=== PATIENT | female | born 1960 | race Native Hawaiian/Other Pacific Islander ===

== ENCOUNTER 2021-01-24 11:06 | Outpatient (CLI) | payer OTHER ==
[~2021-01-24] VITALS: Ht 154.9 cm; Wt 89.4 kg
== END 2021-01-24 21:51 | disposition home or self-care (01) ==
LOC: DIABINF 11:06
PROVIDERS: ATTEND Internal Medicine Endocrinology, Diabetes & Metabolism
DX: E11.65 Type 2 diabetes mellitus with hyperglycemia (principal); E11.40 Type 2 diabetes mellitus with diabetic neuropathy, unspecified; I25.119 Atherosclerotic heart disease of native coronary artery with unspecified angina pectoris; I10 Essential (primary) hypertension; E78.2 Mixed hyperlipidemia; G25.81 Restless legs syndrome; E66.9 Obesity, unspecified; Z68.39 Body mass index [BMI] 39.0-39.9, adult; E55.9 Vitamin D deficiency, unspecified
CPT/HCPCS: 82948; 96365; 96366; 96521; 99204; J1718; J1815

== ENCOUNTER 2021-01-25 12:23 | Outpatient (CLI) | payer OTHER ==
[~2021-01-25] VITALS: Ht 154.9 cm; Wt 89.4 kg
== END 2021-01-25 22:03 | disposition home or self-care (01) ==
LOC: DIABINF 12:23
PROVIDERS: ATTEND Internal Medicine Endocrinology, Diabetes & Metabolism
DX: E11.65 Type 2 diabetes mellitus with hyperglycemia (principal); E11.40 Type 2 diabetes mellitus with diabetic neuropathy, unspecified; I25.119 Atherosclerotic heart disease of native coronary artery with unspecified angina pectoris; I10 Essential (primary) hypertension; E78.2 Mixed hyperlipidemia; G25.81 Restless legs syndrome; E66.8 Other obesity; Z68.39 Body mass index [BMI] 39.0-39.9, adult; E55.9 Vitamin D deficiency, unspecified
CPT/HCPCS: 82948; 96365; 96366; 96521; 99214; J1718; J1815

== ENCOUNTER 2021-01-31 12:23 | Outpatient (CLI) | payer OTHER ==
[~2021-01-31] VITALS: Ht 180.3 cm; Wt 89.4 kg
== END 2021-01-31 21:18 | disposition home or self-care (01) ==
LOC: DIABINF 12:23
PROVIDERS: ATTEND Internal Medicine Endocrinology, Diabetes & Metabolism
DX: E11.65 Type 2 diabetes mellitus with hyperglycemia (principal); E11.40 Type 2 diabetes mellitus with diabetic neuropathy, unspecified; N18.31 Chronic kidney disease, stage 3a; I25.118 Atherosclerotic heart disease of native coronary artery with other forms of angina pectoris; I10 Essential (primary) hypertension; E78.2 Mixed hyperlipidemia; G25.81 Restless legs syndrome; E66.8 Other obesity; Z68.39 Body mass index [BMI] 39.0-39.9, adult; E55.9 Vitamin D deficiency, unspecified
CPT/HCPCS: 82948; 96365; 96366; 96521; 99214; J1718; J1815

== ENCOUNTER 2021-02-01 13:03 | Outpatient (CLI) | payer OTHER ==
[~2021-02-01] VITALS: Ht 180.3 cm; Wt 89.4 kg
== END 2021-02-01 22:44 | disposition home or self-care (01) ==
LOC: DIABINF 13:03
PROVIDERS: ATTEND Internal Medicine Endocrinology, Diabetes & Metabolism
DX: E11.65 Type 2 diabetes mellitus with hyperglycemia (principal); E11.40 Type 2 diabetes mellitus with diabetic neuropathy, unspecified; I25.118 Atherosclerotic heart disease of native coronary artery with other forms of angina pectoris; I10 Essential (primary) hypertension; E78.2 Mixed hyperlipidemia; G25.81 Restless legs syndrome; E66.8 Other obesity; Z68.39 Body mass index [BMI] 39.0-39.9, adult; E55.9 Vitamin D deficiency, unspecified; N18.31 Chronic kidney disease, stage 3a
CPT/HCPCS: 82948; 96365; 96366; 96521; 99214; J1718; J1815

== ENCOUNTER 2021-02-07 12:31 | Outpatient (CLI) | payer OTHER ==
[~2021-02-07] VITALS: Ht 154.9 cm; Wt 89.4 kg
== END 2021-02-07 19:17 | disposition home or self-care (01) ==
LOC: DIABINF 12:31
PROVIDERS: ATTEND Internal Medicine Endocrinology, Diabetes & Metabolism
DX: E11.65 Type 2 diabetes mellitus with hyperglycemia (principal); E11.40 Type 2 diabetes mellitus with diabetic neuropathy, unspecified; I25.118 Atherosclerotic heart disease of native coronary artery with other forms of angina pectoris; I10 Essential (primary) hypertension; E78.2 Mixed hyperlipidemia; G25.81 Restless legs syndrome; E66.8 Other obesity; Z68.39 Body mass index [BMI] 39.0-39.9, adult; E55.9 Vitamin D deficiency, unspecified; N18.31 Chronic kidney disease, stage 3a
CPT/HCPCS: 82948; 96365; 96366; 96521; 99214; J1718; J1815

== ENCOUNTER 2021-02-08 12:57 | Outpatient (CLI) | payer OTHER ==
[~2021-02-08] VITALS: Ht 154.9 cm; Wt 89.4 kg
== END 2021-02-08 20:29 | disposition home or self-care (01) ==
LOC: DIABINF 12:57
PROVIDERS: ATTEND Internal Medicine Endocrinology, Diabetes & Metabolism
DX: E11.65 Type 2 diabetes mellitus with hyperglycemia (principal); E11.40 Type 2 diabetes mellitus with diabetic neuropathy, unspecified; I25.118 Atherosclerotic heart disease of native coronary artery with other forms of angina pectoris; I10 Essential (primary) hypertension; E78.2 Mixed hyperlipidemia; G25.81 Restless legs syndrome; E66.8 Other obesity; Z68.39 Body mass index [BMI] 39.0-39.9, adult; E55.9 Vitamin D deficiency, unspecified; N18.31 Chronic kidney disease, stage 3a
CPT/HCPCS: 82948; 96365; 96366; 96521; 99214; J1718; J1815

== ENCOUNTER 2021-02-13 13:00 | Outpatient (CLI) | payer OTHER ==
[~2021-02-13] VITALS: Ht 154.9 cm; Wt 89.4 kg
== END 2021-02-13 19:15 | disposition home or self-care (01) ==
LOC: DIABINF 13:00
PROVIDERS: ATTEND Internal Medicine Endocrinology, Diabetes & Metabolism
DX: E11.65 Type 2 diabetes mellitus with hyperglycemia (principal); E11.40 Type 2 diabetes mellitus with diabetic neuropathy, unspecified; I25.118 Atherosclerotic heart disease of native coronary artery with other forms of angina pectoris; I10 Essential (primary) hypertension; E78.2 Mixed hyperlipidemia; G25.81 Restless legs syndrome; E66.8 Other obesity; Z68.39 Body mass index [BMI] 39.0-39.9, adult; E55.9 Vitamin D deficiency, unspecified; N18.31 Chronic kidney disease, stage 3a
CPT/HCPCS: 82948; 96365; 96366; 96521; 99214; J1718; J1815

== ENCOUNTER 2021-02-16 15:23 | Outpatient (CLI) | payer OTHER ==
[2021-02-16 19:45] LABS: POTASSIUM 3.5 mmol/L (3.6-5.2)
== END 2021-02-16 22:03 | disposition home or self-care (01) ==
LOC: LAB 15:23
PROVIDERS: ATTEND Nurse Practitioner
DX: E11.65 Type 2 diabetes mellitus with hyperglycemia (principal); N18.32 Chronic kidney disease, stage 3b; I12.9 Hypertensive chronic kidney disease with stage 1 through stage 4 chronic kidney disease, or unspecified chronic kidney disease
CPT/HCPCS: 80053

== ENCOUNTER 2021-02-21 12:30 | Outpatient (CLI) | payer OTHER ==
[~2021-02-21] VITALS: Ht 154.9 cm; Wt 89.4 kg
== END 2021-02-21 21:04 | disposition home or self-care (01) ==
LOC: DIABINF 12:30
PROVIDERS: ATTEND Internal Medicine Endocrinology, Diabetes & Metabolism
DX: E11.65 Type 2 diabetes mellitus with hyperglycemia (principal); E11.40 Type 2 diabetes mellitus with diabetic neuropathy, unspecified; I25.118 Atherosclerotic heart disease of native coronary artery with other forms of angina pectoris; I10 Essential (primary) hypertension; E78.2 Mixed hyperlipidemia; G25.81 Restless legs syndrome; E66.8 Other obesity; Z68.39 Body mass index [BMI] 39.0-39.9, adult; E55.9 Vitamin D deficiency, unspecified; N18.31 Chronic kidney disease, stage 3a
CPT/HCPCS: 82948; 96365; 96366; 96521; 99214; J1718; J1815

== ENCOUNTER 2021-03-06 16:06 | Outpatient (CLI) | payer OTHER | END 2021-03-06 23:50 | disposition home or self-care (01) | LOC: LAB 16:06 | PROVIDERS: ATTEND Nurse Practitioner Family | DX: S91.112A Laceration without foreign body of left great toe without damage to nail, initial encounter (principal) | CPT/HCPCS: 87070; 87205 ==

== ENCOUNTER 2021-03-08 12:42 | Outpatient (CLI) | payer OTHER ==
[~2021-03-08] VITALS: Ht 154.9 cm; Wt 89.4 kg
== END 2021-03-08 19:22 | disposition home or self-care (01) ==
LOC: DIABINF 12:42
PROVIDERS: ATTEND Internal Medicine Endocrinology, Diabetes & Metabolism
DX: E11.65 Type 2 diabetes mellitus with hyperglycemia (principal); E11.40 Type 2 diabetes mellitus with diabetic neuropathy, unspecified; I25.119 Atherosclerotic heart disease of native coronary artery with unspecified angina pectoris; I10 Essential (primary) hypertension; E78.2 Mixed hyperlipidemia; G25.81 Restless legs syndrome; E66.9 Obesity, unspecified; Z68.39 Body mass index [BMI] 39.0-39.9, adult; N18.31 Chronic kidney disease, stage 3a; S91.112D Laceration without foreign body of left great toe without damage to nail, subsequent encounter
CPT/HCPCS: 82948; 96365; 96366; 96521; J1815; J1817

== ENCOUNTER 2021-03-21 12:35 | Outpatient (CLI) | payer OTHER ==
[~2021-03-21] VITALS: Ht 154.9 cm; Wt 89.4 kg
== END 2021-03-21 19:36 | disposition home or self-care (01) ==
LOC: DIABINF 12:35
PROVIDERS: ATTEND Internal Medicine Endocrinology, Diabetes & Metabolism
DX: E11.65 Type 2 diabetes mellitus with hyperglycemia (principal); E11.40 Type 2 diabetes mellitus with diabetic neuropathy, unspecified; I25.119 Atherosclerotic heart disease of native coronary artery with unspecified angina pectoris; I10 Essential (primary) hypertension; E78.2 Mixed hyperlipidemia; G25.81 Restless legs syndrome; E66.8 Other obesity; Z68.39 Body mass index [BMI] 39.0-39.9, adult; E55.9 Vitamin D deficiency, unspecified; N18.31 Chronic kidney disease, stage 3a; S91.112D Laceration without foreign body of left great toe without damage to nail, subsequent encounter
CPT/HCPCS: 82948; 96365; 96366; 96521; J1815; J1817

== ENCOUNTER 2021-03-28 12:13 | Outpatient (CLI) | payer OTHER ==
[~2021-03-28] VITALS: Ht 154.9 cm; Wt 89.4 kg
== END 2021-03-28 22:07 | disposition home or self-care (01) ==
LOC: DIABINF 12:13
PROVIDERS: ATTEND Internal Medicine Endocrinology, Diabetes & Metabolism
DX: E11.65 Type 2 diabetes mellitus with hyperglycemia (principal); E11.40 Type 2 diabetes mellitus with diabetic neuropathy, unspecified; I25.119 Atherosclerotic heart disease of native coronary artery with unspecified angina pectoris; I10 Essential (primary) hypertension; E78.2 Mixed hyperlipidemia; G25.81 Restless legs syndrome; E66.8 Other obesity; Z68.39 Body mass index [BMI] 39.0-39.9, adult; E55.9 Vitamin D deficiency, unspecified; N18.31 Chronic kidney disease, stage 3a; S91.112D Laceration without foreign body of left great toe without damage to nail, subsequent encounter
CPT/HCPCS: 82948; 96365; 96366; 96521; J1815; J1817

== ENCOUNTER 2021-03-30 15:19 | Outpatient (CLI) | payer OTHER ==
[2021-03-30 15:39] LABS: POTASSIUM 3.5 mmol/L (3.6-5.2)
== END 2021-03-30 22:00 | disposition home or self-care (01) ==
LOC: LAB 15:19
PROVIDERS: ATTEND Nurse Practitioner
DX: N18.9 Chronic kidney disease, unspecified (principal)
CPT/HCPCS: 80053

== ENCOUNTER 2021-04-20 17:00 | Outpatient (CLI) | payer OTHER | END 2021-04-20 18:00 | disposition home or self-care (01) | LOC: LAB 17:00 | PROVIDERS: ATTEND Nurse Practitioner | DX: S91.112D Laceration without foreign body of left great toe without damage to nail, subsequent encounter (principal); E11.9 Type 2 diabetes mellitus without complications | CPT/HCPCS: 87070; 87076; 87077; 87186; 87205 ==

== ENCOUNTER 2021-04-21 14:29 | Outpatient (CLI) | payer OTHER ==
[2021-05-05 13:10] LABS: PLATELET COUNT 221 K/uL (152-353)
[2021-05-05 13:11] LABS: POTASSIUM 3.4 mmol/L (3.6-5.2)
== END 2021-04-21 16:00 | disposition home or self-care (01) ==
LOC: LAB 14:29
PROVIDERS: ATTEND Nurse Practitioner
DX: N18.32 Chronic kidney disease, stage 3b (principal)
CPT/HCPCS: 80053; 80061; 82306; 82570; 83036; 83970; 84100; 84155; 84439; 84443; 85027

== ENCOUNTER 2021-05-24 15:17 | Outpatient (CLI) | payer OTHER ==
[2021-05-24 15:36] LABS: PLATELET COUNT 255 K/uL (152-353)
[2021-05-24 15:57] LABS: POTASSIUM 3.5 mmol/L (3.6-5.2)
== END 2021-05-24 21:07 | disposition home or self-care (01) ==
LOC: LAB 15:17
PROVIDERS: ATTEND Nurse Practitioner Family
DX: E11.65 Type 2 diabetes mellitus with hyperglycemia (principal); E78.2 Mixed hyperlipidemia; N18.9 Chronic kidney disease, unspecified; I10 Essential (primary) hypertension; I25.10 Atherosclerotic heart disease of native coronary artery without angina pectoris
CPT/HCPCS: 80053; 80061; 82306; 83036; 84443; 85027

== ENCOUNTER 2021-07-14 17:12 | Outpatient (CLI) | payer OTHER ==
[2021-07-14 21:14] LABS: POTASSIUM 3.9 mmol/L (3.6-5.2)
== END 2021-07-14 19:07 | disposition home or self-care (01) ==
LOC: LAB 17:12
PROVIDERS: ATTEND Nurse Practitioner Family
DX: R10.11 Right upper quadrant pain (principal)
CPT/HCPCS: 80053; 82150; 83690

== ENCOUNTER 2021-07-18 08:18 | Outpatient (CLI) | payer OTHER | END 2021-07-18 19:01 | disposition home or self-care (01) | LOC: CT 08:18 | PROVIDERS: ATTEND Nurse Practitioner Family | DX: R10.11 Right upper quadrant pain (principal); R10.821 Right upper quadrant rebound abdominal tenderness | CPT/HCPCS: Q9963 ==

== ENCOUNTER 2021-08-16 17:04 | Observation (INO) | payer OTHER ==
[~2021-08-16] VITALS: Ht 152.4 cm; Wt 93.5 kg
--- NOTE | 2021-08-16 17:45 | NUR ---
PT ARRIVED ONTO UNIT
--- NOTE | 2021-08-16 17:55 | NUR ---
20G LW STARTED BY RYAN REED RN
--- NOTE | 2021-08-16 18:15 | NUR ---
RESP TH AT BS FOR EKG
--- NOTE | 2021-08-16 18:28 | NUR ---
pt returned from xray
[2021-08-16 18:55] LABS: PLATELET COUNT 225 K/uL (152-353)
[2021-08-16 20:00] VITALS: BP 123/97; TEMP 98.5
[2021-08-16 20:23] VITALS: BP 125/44; TEMP 98.9; Ht 152.4 cm; Wt 93.5 kg
[2021-08-16] MEDS ORDERED: ROPINIROLE2 MG PO (22:19)
[2021-08-16] MEDS ORDERED: FURO40TA93 PO (22:20)
[2021-08-16] MEDS ORDERED: LIPITOR20 MG PO (22:21)
[2021-08-16] MEDS ORDERED: COZAAR100 MG PO (22:22)
[2021-08-16] MEDS ORDERED: METOPROLOL25 M1 PO (22:23)
[2021-08-16] MEDS ORDERED: ASA LOW DOSE81 MG PO (22:24)
[2021-08-16] MEDS ORDERED: CRESTOR20 MG PO (22:25)
[2021-08-16] MEDS ORDERED: AMLODIPINE BESYLATE PO (22:25)
[2021-08-16 23:52] VITALS: BP 148/66; TEMP 98
[2021-08-17 04:00] VITALS: BP 132/51; TEMP 97.6
[2021-08-17 08:00] VITALS: BP 138/52; TEMP 97.6
--- NOTE | 2021-08-17 09:25 | NUR ---
PT AWAKE RESTING IN BED AND WATCHING TV. VITALS WNL. BLOOD SUGAR 356. SSC GIVEN. SALINE LOCK PATENT AN INTACT. PT COMPLAIN OF MILD LEG PAIN; LEVEL 3 AND STATES IT'S WORSE AT NIGHT. EDUCATED ON INCENTIVE SPIROMETER USE AND ADVISED TO USE EVERYTIME A COMMERCIAL COMES ON. PT DEMONSTRATED PROPER USE OF IS. WILL CONTINUE TO MONITOR.
[2021-08-17 12:00] VITALS: BP 147/47; TEMP 97.6
[2021-08-17 16:00] VITALS: BP 151/50; TEMP 97.7
[2021-08-17 16:24] LABS: PLATELET COUNT 219 K/uL (152-353)
[2021-08-17 16:36] LABS: POTASSIUM 3.2 mmol/L (3.6-5.2)
--- NOTE | 2021-08-17 17:35 | NUR ---
PATIENT D/C'D FROM FACILITY AND TAKEN TO SON, JOSIE'S, POV, VIA WHEELCHAIR AND ASSISTED PATIENT TO POV. PATIENT DENIES ANY PAIN, NEEDS, C/O, OR SHORTNESS OF BREATH AT THIS TIME. DISCHARGE INSTRUCTIONS REVIEWED IN EXTENSIVE DETAIL WITH PATIENT AND SON TO INCLUDE BUT NOT LIMITED TO HOSPITAL DISCHARGE APPOINTMENT DATE AND TIME WITH DR. IVY IN THE [place] OFFICE ALONG WITH ADDRESS AND PHONE NUMBER, EDUCATION ON DIABETIC DIET WITH EXAMPLES OF DIABETIC MEALS, HOW TO MONITOR BLOOD GLUCOSE AND JOURNAL SAME, USE OF OXYGEN CONCENTRATOR AND SMALL OXYGEN TANK AND WHERE TO EXCHANGE TANK, AND HOW TO ADMINISTER LEVEMIR 22UNITS IN THE AM & PM. ALSO SUGGESTED TO PATIENT AND HIS SON, JOSIE, TO PURCHASE A OXYGEN FINGER MONITOR. BOTH V/O UNDERSTANDING TO INSTRUCTIONS AND EDUCATION AND DENY ANY QUESTIONS OR C/O AT THIS TIME. NAD NOTED WITH PATIENT AT THIS TIME. NO S/SX OF DISTRESS NOTED WITH PATIENT.
--- NOTE | 2021-08-17 18:20 | NUR ---
PT SITTING UP IN CHAIR WATCHING TV. CONTACTED DR. OROZCO REGARDING PATIENT'S POTASSIUM LEVEL. NEW ORER FOR POTASSIUM 40MEQ X'S ONE DOSE. MEDICATION ADMINISTERED. SALINE LOCK PATENT AND INTACT. NO C/O PAIN. WILL CONTINUE TO MONITOR.
== END 2021-08-17 20:00 | disposition home or self-care (01) ==
LOC: MED/SURG 17:04
PROVIDERS: ADMIT Family Medicine; ATTEND Family Medicine
DX: J18.8 Other pneumonia, unspecified organism (principal); I10 Essential (primary) hypertension; E11.9 Type 2 diabetes mellitus without complications
CPT/HCPCS: 36415; 80053; 82595; 82728; 83735; 84100; 85027; 85379; 93005; 94640; 94664; 94760; 99220; G0378; G0379; J0456; J0696; J1815; J2930

== ENCOUNTER 2021-09-06 16:00 | Outpatient (CLI) | payer OTHER ==
[~2021-09-06 16:00] MED LIST: AMLODIPINE BESYLATE PO; ASA LOW DOSE81 MG PO; COZAAR100 MG PO; CRESTOR20 MG PO; FURO40TA93 PO; LIPITOR20 MG PO; METOPROLOL25 M1 PO; ROPINIROLE2 MG PO
== END 2021-09-06 19:00 | disposition home or self-care (01) ==
LOC: INF 16:00
PROVIDERS: ATTEND Family Medicine
DX: Z23 Encounter for immunization (principal)
CPT/HCPCS: 0004A